=== PATIENT | male | born 1945 | race Caucasian/White ===

== ENCOUNTER → 2023-04-02 | Outpatient (CLI) | payer MEDICARE ==
[2023-04-02 09:27] LABS: NT-Pro-B-Type Natriuretic Pept 143 pg/mL
[2023-04-02 09:34] LABS: ALT 22 U/L (4-49); AST 25 U/L (17-59)
[2023-04-02 10:53] LABS: T4, Free (Free Thyroxine) 0.99 ng/dL (0.78-2.19)
[2023-04-02 15:41] LABS: LDL Cholesterol,Calculated 86.6 mg/dL (0.0-131.0)
== END | disposition home or self-care (01) ==
LOC: LABWHC1 07:18
PROVIDERS: ATTEND Internal Medicine
DX: R06.02 Shortness of breath (principal); R00.2 Palpitations
CPT/HCPCS: 36415; 80061; 83880; 84439; 84443; 84450; 84460

== ENCOUNTER 2023-04-28 09:57 | Day surgery (SDC) | payer MEDICARE ==
[~2023-04-28 09:57] MED LIST: ALPRAZolam 0.25 MG TAB PO PRN; HEPARIN SODIUM,PORCINE (1 ML) 2,500 UNIT in SODIUM CHLORIDE 0.9% 250 ML IRRIGATION PRN; HEPARIN SODIUM,PORCINE 10,000 UNIT in SODIUM CHLORIDE 0.9% 1,000 ML IRRIGATION PRN; NITROGLYCERIN SL TABS 0.4 MG TAB SUBLINGUAL PRN
[2023-04-28] MEDS: SODIUM CHLORIDE 0.9% 1,000 ML IV ONE (10:13)
[2023-04-28] MEDS: SODIUM CHLORIDE 0.9% 1,000 ML in EMPTY BAG 1 BAG IV SCH (10:26)
[2023-04-28] MEDS: ASPIRIN 325 MG TAB PO STA (10:27)
[2023-04-28] MEDS: ALPRAZolam 0.5 MG TAB PO PRN (10:27)
[2023-04-28 10:36] VITALS: TEMP 97.1
[2023-04-28 10:54] LABS: Basophils % (A) 1 %; Eosinophils # (A) 0.2 k/uL (0-0.7); Eosinophils % (A) 4 %; HCT 31.5 % (39.0-53.0); HGB 10.9 gm/dL (13.0-17.5); Lymphocytes # (A) 0.8 k/uL (1.0-4.8); Lymphocytes % (A) 16 %; MCHC 34.6 g/dL (31.0-37.0); MCV 98.1 fL (80.0-100.0); Mean Platelet Volume 8.2; Monocytes # (A) 0.4 k/uL (0-1.0); Monocytes % (A) 7 %; Neutrophils # (A) 3.6 k/uL (1.3-7.7); Neutrophils % (A) 71 %; Platelet Count 203 k/uL (150-450); RBC 3.21 m/uL (4.30-5.90); RDW 11.9 % (11.5-15.5); WBC 5.1 k/uL (3.8-10.6)
[2023-04-28 11:08] LABS: African American GFR (CKD) >90 (>60 ml/min/1.73 sqM); Anion Gap 4 mmol/L; Blood Urea Nitrogen 10 mg/dL (9-20); Carbon Dioxide 19 mmol/L (22-30); Chloride 118 mmol/L (98-107); Glucose 89 mg/dL (74-99); Non-African American GFR(CKD) >90 (>60 ml/min/1.73 sqM); Sodium 141 mmol/L (137-145)
[2023-04-28 11:25] LABS: Calcium 5.7 mg/dL (8.4-10.2); Potassium 2.3 mmol/L (3.5-5.1)
[2023-04-28] MEDS: POTASSIUM CHLORIDE 20 MEQ in WATER FOR INJECTION 1 100ML.BAG IVPB SCH (11:45)
[2023-04-28] MEDS: MIDAZOLAM 2 MG/2 ML VIAL IVP ONE (13:47)
[2023-04-28] MEDS: fentaNYL (PF) 50 MCG/ML 2 ML AMP IVP ONE (13:47)
[2023-04-28] MEDS: LIDOCAINE 1% INJ 10MG/ML (20 ML MDV) SQ ONE (13:56)
[2023-04-28] MEDS: VERAPAMIL SYRINGE (5 MG/10 ML) INTRAARTER ONE (13:57)
[2023-04-28] MEDS: HEPARIN SODIUM 1,000 UN/ML (10ML VL) IV ONE (14:01)
[2023-04-28] MEDS: IOPAMIDOL-370 100ML BTL INJ ONE (14:11)
--- NOTE | 2023-04-28 14:18 | P.CARDCATH ---
Description of Procedure: PROCEDURES PERFORMED: Left heart catheterization, bilateral coronary angiography, ultrasound guided arterial access INDICATION: Abnormal stress test CONSENT:I have discussed the risks, benefits and alternative therapies for the above-mentioned procedure and for both sedation/analgesia as well as necessary blood product administration, if indicated, as they pertain to this patient. The patient has indicated understanding and acceptance of the risks and procedures discussed. PROCEDURE: After the risks, benefits and alternatives of the above mentioned procedure explained in detail with the patient, informed consent was obtained. Patient was taken to the catheterization lab and prepped and draped in usual fashion. Ultrasound guidance was used to assess for arterial access. 1% lidocaine was used to anesthetize the right radial artery. A 6-[place] sheath was placed in the right radial artery using modified Seldinger technique and ultrasound guidance. Left coronary angiography was performed with a 5-[place] JL 3.5 catheter and right coronary angiography was performed with a 5-[place] AR2 catheter in various views. A 5-[place] FR5 catheter was inserted into the left ventricle and pressure measurements were obtained. The right radial sheath was removed and a TR band was placed with hemostasis achieved. The patient to lerated the procedure well. Patient was transported back to the post catheterization holding area in stable condition. Conscious Sedation: Patient was monitored under the direct supervision of myself for conscious sedation using Versed and fentanyl for a total duration of 18 minutes HEMODYNAMICS: Aortic: 142/76 LV: 141/15, LVEDP 25 SELECTIVE CORONARY ARTERIOGRAPHY: LEFT MAIN: The left main is a large caliber vessel which bifurcates into the LAD and circumflex. There is no significant stenosis. LEFT ANTERIOR DESCENDING CORONARY ARTERY: LAD is a large caliber vessel which wraps around to the apex. There are mild luminal irregularities of the proximal and mid LAD, 10 to 20%. LEFT CIRCUMFLEX CORONARY ARTERY: Left circumflex is a moderate caliber vessel with mild luminal irregularities 10% stenosis. RIGHT CORONARY ARTERY: The right coronary artery is a large caliber vessel which gives off a PDA and PLV branch and is the dominant vessel. There are mild luminal irregularities 10 to 20% stenosis FINAL IMPRESSION: 1. Relatively normal coronary arteries with 10 to 20% stenosis of LAD, circumflex and RCA 2. Elevated left sided filling pressures 3. Hypokalemia noted with blood work PLAN: 1. Aggressive risk factor modification per most recent ACC/AHA guidelines. 2. Replace potassium IV and patient will be sent home on oral potassium supplementation. Monitor response of potassium supplementation.
[2023-04-28 17:54] VITALS: BP 127/69; PULSE 71; RESP 16
== END 2023-04-28 17:31 | disposition home or self-care (01) ==
LOC: CATHCVL 09:57
PROVIDERS: ATTEND Internal Medicine
DX: I25.10 Atherosclerotic heart disease of native coronary artery without angina pectoris (principal); E87.6 Hypokalemia; I10 Essential (primary) hypertension; E78.5 Hyperlipidemia, unspecified; G47.33 Obstructive sleep apnea (adult) (pediatric); F17.210 Nicotine dependence, cigarettes, uncomplicated; Z79.82 Long term (current) use of aspirin; Z79.899 Other long term (current) drug therapy
CPT/HCPCS: 93458; 76937; 80048; 85025; C1769; C1894; J2250; J3480; J2001; J3010; J1644; Q9967

== ENCOUNTER → 2023-05-07 | Outpatient (CLI) | payer MEDICARE ==
[2023-05-07 17:58] LABS: Blood Urea Nitrogen 17.1 mg/dL (9.0-27.0); Calcium 9.5 mg/dL (8.7-10.3); Carbon Dioxide 25.5 mmol/L (21.6-31.8); Chloride 109 mmol/L (96-109); Glucose 97 mg/dL (70-110); Potassium 4.7 mmol/L (3.5-5.5); Sodium 146 mmol/L (135-145)
== END | disposition home or self-care (01) ==
LOC: LABWHC1 10:20
PROVIDERS: ATTEND Internal Medicine
DX: E87.6 Hypokalemia (principal)
CPT/HCPCS: 36415; 80048; 83735

== ENCOUNTER → 2023-06-13 | Outpatient (CLI) | payer MEDICARE ==
[2023-06-13 14:10] LABS: African American GFR (CKD) >90 (>60 ml/min/1.73 sqM); Blood Urea Nitrogen 18 mg/dL (9-20); Non-African American GFR(CKD) 84 (>60 ml/min/1.73 sqM)
--- NOTE | 2023-06-19 17:47 | CT ---
EXAMINATION TYPE: CT chest angio for PE CT DLP: 572.7 mGycm, Automated exposure control for dose reduction was used. DATE OF EXAM: 06/13/2023 3:04 PM COMPARISON: No prior exams. CLINICAL INDICATION:Male, 77 years old with history of R06.09 OTHER FORMS OF DYSPNEA; SOB. R/O PE. TECHNIQUE/CONTRAST: CTA scan of the thorax is performed with IV Contrast, patient injected with 100 mL of Isovue 370, MIP images are created and reviewed these are created on a separate workstation.. FINDINGS: Pulmonary Artery: There is no evidence for a filling defect within the pulmonary vasculature to sugge st acute pulmonary embolism. The pulmonary artery is of normal size. Lungs/Pleura: No evidence of focal consolidation, pleural effusion or pneumothorax. Airway: Large airways are patent. Heart: Heart is within normal limits for size. Vasculature: No evidence of aortic aneurysm. Mediastinum: No gross evidence of adenopathy. Musculoskeletal: No acute osseous abnormalities Soft Tissues: Unremarkable. Lower neck: No significant findings. Upper Abdomen: Simple, large left kidney cyst requires no follow-up.. IMPRESSION: 1. No evidence of pulmonary embolism. 2. No findings that would explain patient's symptoms. Follow up recommendations for incidental pulmonary nodules, if there are any, are per [employer] or [employer]. [email or web address]?[email or web address]
== END | disposition home or self-care (01) ==
LOC: RADCTMAIN 13:23
PROVIDERS: ATTEND Internal Medicine Critical Care Medicine
DX: R06.02 Shortness of breath (principal)
CPT/HCPCS: 82565; 84520; 71275; 36415; Q9967